=== PATIENT | female | born 1985 | race Caucasian/White ===

== ENCOUNTER 2024-05-01 13:17 | Emergency (ER) | payer OTHER, SELFPAY ==
[2024-05-01 13:23] VITALS: BP 116/74
[2024-05-01 13:56] LABS: Urine Albumin Negative (Neg - Trace); Urine Bilirubin Negative (Negative); Urine Character Clear (Clear); Urine Color Yellow; Urine Glucose Negative (Negative); Urine Ketone Trace (Negative); Urine Leukocyte Negative (Negative); Urine Nitrite Negative (Negative); Urine Occult Blood Negative (Negative); Urine Specific Gravity 1.015 (<1.030); Urine Urobilinogen Negative (Neg - 1+)
[2024-05-01 13:59] LABS: % Basophils 0.4 % (0-2); % Eosinophils 3.2 % (0-6); % Immature Granulocytes 0.3 % (0-0.5); % Lymphocytes 27.2 % (20.5-51.1); % Monocytes 4.6 % (1.7-9.3); % Neutrophils 64.3 % (42.2-75.2); Absolute Basophils 0.1 10^3/uL (0-0.2); Absolute Eosinophils 0.4 10^3/uL (0-0.7); Absolute Lymphocytes 3.2 10^3/uL (1.2-3.4); Absolute Monocytes 0.5 10^3/uL (0.1-0.6); Absolute Neutrophils 7.5 10^3/uL (1.4-6.5); Hematocrit 40.9 % (37.0-47.0); Hemoglobin 13.9 g/dL (12.0-16.0); Mean Corpuscular Hgb 29.7 pg (27.0-31.0); Mean Corpuscular Volume 87.4 fL (81.0-99.0); Mean Platelet Volume 9.1 fL (7.4-10.4); Nucleated Red Blood Cells % 0 %; Platelet Count 399 10^3/uL (130-400); Red Blood Cell Count 4.68 10^6/uL (4.20-5.40); White Blood Cell Count 11.7 10^3/uL (4.8-10.8)
[2024-05-01 14:06] LABS: HCG, Serum Qualitative Screen Negative
[2024-05-01 14:13] LABS: ALT (SGPT) 23 U/L (0-35); AST (SGOT) 23 U/L (14-36); Albumin 4.9 g/dl (3.5-5.0); Alkaline Phosphatase 62 U/L (38-126); Blood Urea Nitrogen 14 mg/dl (7-17); Calcium 9.9 mg/dl (8.4-10.2); Carbon Dioxide 26 mmol/L (22-30); Chloride 101 mmol/L (98-107); Glucose 90 mg/dl (70-99); Sodium 139 mmol/L (135-145); Total Bilirubin 0.4 mg/dl (0.2-1.3); Total Protein 7.6 g/dl (6.3-8.2); eGFR > 60.00
[2024-05-01 14:26] VITALS: BMI 31.4
--- NOTE | 2024-05-01 15:07 | ED.GENMED ---
History of Present Illness
General
Chief Complaint: Flank Pain
Source: patient
Exam Limitations: none
Time Seen by Provider: 05/01/24 14:53
Nursing documentation reviewed up to this point in time: agreed with
History of Present Illness
History of Present Illness:
38 y/o F h/o back problems
kidney stones
here wih several days of rashad back pain, more on the L than right
much worse with changing positions
owns a cleaning buisiness
no radiation around her flank or into her abdomen, no urinary symptoms. She is not having any fevers or chills, nausea or vomiting or diarrhea. Patient tried a muscle relaxer last night which did not help. She has been going to a chiropractor
more recently because of her chronic back issues.
The pain does not radiate down her legs and she is not having any numbness tingling or weakness. She does not believe that this feels like a kidney stone
Past History
Past History
ED Past Medical History: Other (Kidney stones); Negative Asthma, HTN, Hypercholesterolemia or NIDDM
ED Past Surgical History: None
Social History
Tobacco: Non-smoker
Alcohol: Occasional
Drug: None
Personal: Single
Living: with family
Employment: Employed
Family History
Family History: Other
Review of Systems
Review of Systems
Allergies reviewed?: Yes
All Other Systems: Not applicable
Phy Exam
Physical Exam
Physical Exam:
GENERAL: Alert , in no apparent distress, comfortable at rest
HEAD: NCAT
NECK: no midline tenderness, active ROM intact, no paraspinal muscle tenderness;
CARDIAC: Regular rate and rhythm, no edema
LUNGS: Clear breath sounds bilaterally, no acute respiratory distress, no wheezes/rales/rhonchi
ABDOMEN: Soft, without focal tenderness, no r/g, no cvat, normal bowel sounds, nondistended
NEUROLOGICAL: Alert and oriented, no focal neuro deficits, CN intact, 5/5 strength, sensation intact, ambulation slight limp left leg
SKIN: Warm and dry,
MUSCULOSKELETAL: No edema, well perfused.
Back: No midline tenderness, moderate left-sided lumbar lateral tenderness with a muscle spasm, no CVA tenderness, pain worse with movement, negative straight leg raise bilaterally
PSYCH: Normal and appropriate interaction.
Course
Orders/Labs/Results
Orders:
Orders
05/01/24 13:28
Test Result ONCE
05/01/24 13:34
Complete Blood Count/With Diff Urgent
Comprehensive Metabolic Panel Urgent
HCG, Serum Qualitative Screen Urgent
Urinalysis Reflex To Culture Urgent
Date Specimen was Collected: 05/01/24
Time Specimen was Collected: 13:28
05/01/24 15:02
Acetaminophen [Tylenol] 650 mg PO NOW STA
Ibuprofen [Motrin] 800 mg PO NOW STA
Lumbar Spine Complete, 4 View [CR Lumbar Spine Comp Min 4 Vw*] Urgent
Comment:
Reason For Exam: lower bck pain worse with movement
Abnormal Lab Results
05/01/24
13:34
WBC 11.7 H 10^3/uL
(4.8-10.8)
Absolute Neuts (auto) 7.5 H 10^3/uL
(1.4-6.5)
Creatinine 0.5 L mg/dL
(0.6-1.0)
Urine Ketones Trace A
(Negative)
05/01/24 13:34
05/01/24 13:34
Vital Signs
Initial and Last Documented VS:
Initial Vital Signs
Temp Pulse Resp BP Pulse Ox
36.9 C 86 18 116/74 96
05/01/24 13:23 05/01/24 13:23 05/01/24 13:23 05/01/24 13:23 05/01/24 13:23
Last Documented Vital Signs
Temp Pulse Resp BP Pulse Ox
36.9 C 86 18 116/74 96
05/01/24 13:23 05/01/24 13:23 05/01/24 13:23 05/01/24 13:23 05/01/24 13:23
MDM/Problems Addressed
Differential Diagnosis Includes:
Lumbar strain, muscle spasm, radiculopathy, less likely kidney stone
MDM/Problems Addressed:
38-year-old female with some mild chronic back discomfort and history of kidney stones presents for left greater than right lower back pain over the last several days worse with movement. She feels tight. She tried a muscle relaxer last night
Flexeril which did not really help. She has taken 1 dose of ibuprofen yesterday. Pain does not wrap around her abdomen or down her legs. This does not feel similar to a kidney stone. On exam she is uncomfortable with movement and comfortable at
rest. She has a palpable muscle spasm in the left lateral lumbar region without any skin changes. There is no CVA tenderness. She has not no red flag symptoms or signs.
Obtained screening lumbar imaging which shows no significant narrowing. Mild arthritis. Will prescribe better muscle relaxer, Valium 3 times daily as needed and encourage ibuprofen 3 times a day with food.
ED Attending Note
-
Portions of this chart may have been created with voice recognition software.� Occasional wrong word or��sound alike� substitutions may have occurred due to the inherent limitations of voice recognition software.
Discharge Plan
Departure
Discharge Problem:
Acute lumbar back pain, Muscle spasm
Instructions: Muscle spasms (muscle cramps)
Prescriptions:
New
diazepam [Valium] 5 mg tablet
5 mg PO BID PRN (Reason: muscle spasm) Qty: 10 0RF
ibuprofen 600 mg tablet
600 mg PO TID PRN (Reason: Pain) Qty: 20 0RF
No Action
vit [id number] [ Vitamin] 1 EACH tablet
1 ea PO DAILY
acetaminophen 325 MG tablet
650 mg PO Q4HPRN PRN (Reason: mild pain) 0RF
sennosides-docusate sodium 1 TABLET tablet
1 tab PO DAILYPRN PRN (Reason: constipation) 0RF
ibuprofen 600 MG tablet
600 mg PO Q4HPRN PRN (Reason: moderate pain/cramps) 0RF
phenazopyridine 100 MG tablet
100 mg PO TIDPRN PRN (Reason: Bladder spasm) Qty: 15 0RF
famotidine 20 MG tablet
20 mg PO BID Qty: 28 0RF
cefuroxime axetil 500 MG tablet
500 mg PO BID Qty: 28 0RF
Referrals:
Grayson Perez MD [Primary Care Provider] - Follow up in 2-3 days
Activity Restrictions/Additional Instructions:
Your blood work and urine are reassuring that this is not a kidney stone or significant infection. It likely is a muscle spasm or pulled muscles. Try Valium 5 mg 2 times a day as needed for muscle spasm. This may make you sleepy. No alcohol with
this. Take ibuprofen 600 mg 3 times a day with food for the next 4 to 5 days. Taking this regularly will help with inflammation. For additional pain tried Tylenol 1 g (2 extra strength tablets) 3 times a day as needed. Apply heat or ice
off-and-on. Use lidocaine patch at night.
Interventions
Interventions:
*Risk Screen - Suicide Last Done: 05/01/24 13:27
*General Assessment Last Done: 05/01/24 13:26
*Neglect/Abuse Screening Last Done: 05/01/24 13:26
*ED COVID-19 Vaccine History Last Done: 05/01/24 13:27
OD-Alhbhc-Zqtlpyktfo Assessment Last Done: 05/01/24 14:27
ED-Female Genitourinary Assessment Last Done: 05/01/24 14:27
Discharge Date and Time
Print Language: INDONESIAN
[2024-05-01] MEDS: TYLENOL 650 MG PO (15:19)
[2024-05-01] MEDS: MOTRIN 800 MG PO (15:20)
[2024-05-01 16:03] VITALS: BP 110/73
== END 2024-05-01 16:13 | disposition home or self-care (01) ==
LOC: EMR 13:17
PROVIDERS: Emergency Medicine; EMERGENCY PHYSICIAN Emergency Medicine; PRIMARYCARE PHYSICIAN Family Medicine
DX: M54.50 Low back pain, unspecified (principal); M62.830 Muscle spasm of back; Z87.442 Personal history of urinary calculi
CPT/HCPCS: 99284; 72110; 80053; 81003; 84703; 85025